=== PATIENT | female | born 1980 | race Caucasian/White ===

== ENCOUNTER → 2024-09-04 | Day surgery (SDC) | payer BC, OTHER ==
[~2024-09-04] MED LIST: LEVOTHYROXINE50 MCG PO; LIDOCAINE HCL 2% LOCAL INJ 5 ML SDV VIAL INJ ONE; PROPOFOL IV EMULSION 10 MG/ML 20 ML VIAL ONE
[2024-09-04] MEDS: LACTATED RINGER'S 1,000 ML ONE (12:43)
[2024-09-04 14:27] VITALS: TEMP 98.7
[2024-09-04 14:50] VITALS: BP 113/86; PULSE 75; RESP 18; O2SAT 100
== END | disposition home or self-care (01) ==
LOC: OR 10:40
PROVIDERS: ATTEND Internal Medicine Gastroenterology
DX: Z12.11 Encounter for screening for malignant neoplasm of colon (principal); D12.4 Benign neoplasm of descending colon; K50.00 Crohn's disease of small intestine without complications; K64.8 Other hemorrhoids; K44.9 Diaphragmatic hernia without obstruction or gangrene; E03.9 Hypothyroidism, unspecified; N39.0 Urinary tract infection, site not specified; Z79.899 Other long term (current) drug therapy
CPT/HCPCS: 45380; 45385; 81025; 86140; J2003; J2704; J7121; 45378

== ENCOUNTER → 2024-10-02 | Outpatient (REF) | payer BC ==
[~2024-10-02] MED LIST changes: -LIDOCAINE HCL 2% LOCAL INJ 5 ML SDV VIAL INJ ONE; -PROPOFOL IV EMULSION 10 MG/ML 20 ML VIAL ONE
== END ==
LOC: DX 09:38
PROVIDERS: ATTEND Nurse Practitioner
DX: K63.3 Ulcer of intestine (principal)
CPT/HCPCS: 74250